=== PATIENT | female | born 1940 | race Caucasian/White ===

== ENCOUNTER 2025-02-27 12:30 | Emergency (ER) | payer OTHER ==
[~2025-02-27] VITALS: Ht 167.6 cm; Wt 65.0 kg
[2025-02-27 12:38] VITALS: TEMP 98.4; O2SAT 99
[2025-02-27 15:35] VITALS: BP 179/90; PULSE 81; RESP 16; O2SAT 100
== END 2025-02-27 15:36 | disposition home or self-care (01) ==
LOC: ER 12:30
DX: S43.409A Unspecified sprain of unspecified shoulder joint, initial encounter (principal); I10 Essential (primary) hypertension; R51.9 Headache, unspecified; W19.XXXA Unspecified fall, initial encounter; Y93.89 Activity, other specified; Y92.89 Other specified places as the place of occurrence of the external cause; Y99.8 Other external cause status
CPT/HCPCS: 73030; 99284